=== PATIENT | female | born 1975 | race Two or more races ===

== ENCOUNTER 2024-04-28 09:46 | Outpatient (AMB) | payer MEDICAID, SELFPAY ==
--- NOTE | 2024-04-28 10:38 | ORTHONT_ITS ---
Vital signs 04/28/24 10:40 Height 1.5 m Height Method Stated Weight 86.239 kg Weight Measurement Method Standing Scale BMI 38.3 BP 114/67 Blood Pressure Source Automatic Cuff Blood Pressure Location Left Upper Arm Position Sitting Respiration 19 Pulse 65 Pulse Source Monitor Temp 98.0 F Temp Source Temporal Artery Scan Pulse Oximetry (%) 98 Oxygen Delivery Method Room Air Med/Allergies Allergies & Medications Allergies No Known Allergies Allergy (Verified 04/28/24 10:40) Medication Reconciliation albuterol sulfate 90 mcg/actuation aerosol inhaler (Ventolin HFA) 2 puff inhalation Q6H PRN shortness of breath or wheezing #8.5 grams 03/16/23 [Rx Confirmed 04/28/24] ibuprofen 800 mg tablet (IBU) 800 mg PO Q8H #20 tabs 03/16/23 [Rx Confirmed 04/28/24] promethazine-DM 6.25 mg-15 mg/5 mL oral syrup 5 ml PO Q6H #200 mL 03/16/23 [Rx Confirmed 04/28/24] diazepam 5 mg tablet (Valium) 5 mg PO BID PRN muscle spasm #10 tabs 09/16/23 [Rx Confirmed 04/28/24] Exam Exam Patient is in no acute distress and is cooperative with the examination today. Breathing is nonlabored. In no respiratory distress. Patient has no paraspinal tenderness. Spinal deformity cannot be appreciated. The gait of the patient is nonantalgic Bilateral extremities were evaluated and demonstrates sensation intact to light touch. Palpable pedal pulses are present. No significant edema is present. Bilateral knees were examined and the patient has full strength and range of motion.. The left hip was examined. Patient was able to flex to 90 degrees, adduct to 30 degrees, abduct to 40 degrees, internally rotate to 20 degrees, and externally rotate to 20 degrees. Patient has a negative logroll. Stinchfield is negative. The patient is nontender diffusely to touch. The right hip was examined. Patient was able to flex to 90 degrees, adduct to 30 degrees, abduct to 40 degrees, internally rotate to 20 degrees, and externally rotate to 20 degrees. Patient has a negative logroll. The stinchfield is negative. Assessment and Plan Problem List (1) Sciatica: Status: Acute Plan: Patient is a 48-year-old female with back versus hip pain with radicular pain and numbness. We discussed that we will get x-rays and go from there. She has a relatively benign hip clinical examination. We will do further workup. We will need to obtain x-rays of her hip as she is never got them. Office Procedures GNS Level of Care Nursing/Assessment Patient Status: Initial/New Patient Nursing Assessment/Reassesment: Medication Reconciliation, Update PMH in EMR and Vital Signs Coordination of Care: Complex Care and Chronic Disease 1-5, Education Complex Pt/Fam, Consent,records obtained, informed consent, 1 Ins Authorization, Lab and Imaging orders, Results/Orders obtained and Staff clarify orders Special Needs: Language special needs New Patient Charge New Patient Point Assignment: 1124 New Patient Point Charge: EXTRUSION FORMER Level 4 ([id number]) MA Intake Visit Data Collection New Patient or Established: New Patient (never been to [facility]) Reason for Visit:: BILATERAL HIP PAIN Seen by Clinical Staff ONLY (RN/MA): No Maxillofacial Prosthodontist Required: Yes PCP or OBGYN visit in last 3 months: Yes Hx Now: No Do You Feel Safe at Home: Yes Authorities Contacted: N/A Questionairres Past Medical History Past Medical History Have you ever been diagnosed with any of the following: Cardiology Problems Congestive Heart Failure: No Respiratory Problems Chronic Obstructive Pulmonary Disease (COPD): No Asthma: No Genital/Urinary Problems Renal Disease: No Endocrine Problems Diabetes Mellitus Type 1: No Diabetes Mellitus Type 2: No Blood Problems Sickle Cell Disease: No Subjective Visit Visit for: new patient and hip (BILATERAL) Immunization / Flu Flu Vaccine in the Last 12 Months: No Flu Vaccine Exclusion Criteria: Refused by Patient History of Present Illness Chief complaint: hip and spine pain Patient is a 48-year-old female with left greater than right hip pain. Started about 1 year ago without any injury, but has gotten worse. Describes symptoms as numbness and tingling down the side of the leg. Sometimes burning sensation, worse at night. Has pain and stiffness with walking going up and down stairs bending down. She has not tried any physical therapy or exercises. Takes ibuprofen 3 times a day sometimes Tylenol. Does not use any assistive devices. Personal History Occupation: UNEMPLOYED Pain Pain level (0-10): 3 Pain duration: ON AND OFF Pain location: outside (lateral) Pain quality: aching Pain timing: night, increases with activity and stairs Associated signs & symptoms: numbness and weakness Ambulatory data Ambulatory device: none Treatments Improvement with previous injections: No Improvement with PT: No Improvement with NSAIDS: no Review of Systems Review of Systems: All systems negative unless otherwise noted in HPI.
[2024-04-28 10:40] VITALS: BP 114/67; PULSE 65; RESP 19; TEMP 36.7; O2SAT 98; BMI 38.3
== END 2024-04-28 11:00 | disposition home or self-care (01) ==
LOC: HODSRG 09:46
PROVIDERS: PCP Family Medicine; Referring Provider Family Medicine; Supervising Provider Orthopaedic Surgery Adult Reconstructive Orthopaedic Surgery; Visit Provider Orthopaedic Surgery Adult Reconstructive Orthopaedic Surgery
DX: M54.30 Sciatica, unspecified side (principal); R20.0 Anesthesia of skin; M54.10 Radiculopathy, site unspecified; M25.552 Pain in left hip; M25.551 Pain in right hip
CPT/HCPCS: 99204; G0463

== ENCOUNTER → 2024-04-29 | Outpatient (CLI) | payer MEDICAID, SELFPAY ==
--- NOTE | 2024-04-29 12:35 | XR_ITS ---
Examination: Lumbar spine 3 views Technique one AP lateral coned lateral lower lumbar spine 3 views Exam date and time: April 29, 2024 1425 hours INDICATIONS: Lower back pain beginning one year ago. FINDINGS: Adequate alignment lumbar vertebral bodies Minimal old depression superior endplate L2 Advanced degenerative disc disease L4-L5 Mild lumbar spondylosis IMPRESSION: Advanced degenerative disc disease L4-L5
--- NOTE | 2024-04-29 12:35 | XR_ITS ---
Examination: Bilateral hips, AP pelvis, 5 views Technique: AP, lateral views both hips, AP pelvis, 5 views Exam date and time: April 29, 2024 1414 hours INDICATIONS: Bilateral hip pain beginning one year ago FINDINGS: Moderate osteopenia Mild narrowing hip joints No right or left hip fracture or dislocation Bones of the pelvis intact IMPRESSION: Mild narrowing hip joints
== END | disposition home or self-care (01) ==
PROVIDERS: PCP Physician Assistant; Referring Provider Orthopaedic Surgery Adult Reconstructive Orthopaedic Surgery; Visit Provider Orthopaedic Surgery Adult Reconstructive Orthopaedic Surgery
DX: M51.369 Other intervertebral disc degeneration, lumbar region without mention of lumbar back pain or lower extremity pain (principal); M25.852 Other specified joint disorders, left hip; M25.851 Other specified joint disorders, right hip
CPT/HCPCS: 72100; 73523

== ENCOUNTER 2024-05-12 10:22 | Outpatient (AMB) | payer MEDICAID, SELFPAY ==
[2024-05-12 11:25] VITALS: BP 111/75; PULSE 77; RESP 18; TEMP 36.6; O2SAT 98; BMI 38.5
--- NOTE | 2024-05-12 11:25 | PD.ORTHCLVIS ---
Vital signs 05/12/24 11:25 Height 1.5 m Height Method Stated Weight 86.806 kg Weight Measurement Method Standing Scale BMI 38.5 BP 111/75 Blood Pressure Source Automatic Cuff Blood Pressure Location Right Upper Arm Position Sitting Respiration 18 Pulse 77 Pulse Source Monitor Temp 97.8 F Temp Source Temporal Artery Scan Pulse Oximetry (%) 98 Oxygen Delivery Method Room Air Med/Allergies Allergies & Medications Allergies No Known Allergies Allergy (Verified 05/12/24 11:26) Medication Reconciliation albuterol sulfate 90 mcg/actuation aerosol inhaler (Ventolin HFA) 2 puff inhalation Q6H PRN shortness of breath or wheezing #8.5 grams 03/16/23 [Rx Confirmed 05/12/24] ibuprofen 800 mg tablet (IBU) 800 mg PO Q8H #20 tabs 03/16/23 [Rx Confirmed 05/12/24] promethazine-DM 6.25 mg-15 mg/5 mL oral syrup 5 ml PO Q6H #200 mL 03/16/23 [Rx Confirmed 05/12/24] diazepam 5 mg tablet (Valium) 5 mg PO BID PRN muscle spasm #10 tabs 09/16/23 [Rx Confirmed 05/12/24] Exam Exam Patient is in no acute distress and is cooperative with the examination today. Breathing is nonlabored. In no respiratory distress. Patient has no paraspinal tenderness. Spinal deformity cannot be appreciated. The gait of the patient is nonantalgic Bilateral extremities were evaluated and demonstrates sensation intact to light touch. Palpable pedal pulses are present. No significant edema is present. Bilateral knees were examined and the patient has full strength and range of motion.. The left hip was examined. Patient was able to flex to 90 degrees, adduct to 30 degrees, abduct to 40 degrees, internally rotate to 20 degrees, and externally rotate to 20 degrees. Patient has a negative logroll. Stinchfield is negative. The patient is nontender diffusely to touch. The right hip was examined. Patient was able to flex to 90 degrees, adduct to 30 degrees, abduct to 40 degrees, internally rotate to 20 degrees, and externally rotate to 20 degrees. Patient has a negative logroll. The stinchfield is negative. Hip x-rays demonstrate no pathology at all. The spine x-rays demonstrate severe degeneration at L4-5. Assessment and Plan Problem List (1) Sciatica: Status: Acute Plan: Patient is a 48-year-old female with back versus hip pain with radicular pain and numbness. She has a relatively benign hip clinical examination and radiographic exam. her spine x-rays are normal andHer symptoms appear to be from her back. She should see a back specialist Office Procedures GNS Level of Care Nursing/Assessment Patient Status: Established Patient Nursing Assessment/Reassesment: Medication Reconciliation, Update PMH in EMR and Vital Signs Coordination of Care: Complex Care and Chronic Disease 1-5, Education Complex Pt/Fam, Consent,records obtained, informed consent, Results/Orders obtained and Staff clarify orders Special Needs: Language special needs Established Patient Charge Established Patient Point Assignment: 95 Established Patient Point Charge: Level 3 (80-115) MA Intake Visit Data Collection New Patient or Established: Established Patient (seen at [facility] within 3 years) Reason for Visit:: F/U XRAYS Seen by Clinical Staff ONLY (RN/MA): No Verbal consent obtained for Telemed visit?: No Animal Cruelty Investigator Required: Yes PCP or OBGYN visit in last 3 months: Yes Hx Now: No Do You Feel Safe at Home: Yes Authorities Contacted: N/A Questionairres Past Medical History Past Medical History Have you ever been diagnosed with any of the following: Cardiology Problems Congestive Heart Failure: No Respiratory Problems Chronic Obstructive Pulmonary Disease (COPD): No Asthma: No Genital/Urinary Problems Renal Disease: No Endocrine Problems Diabetes Mellitus Type 1: No Diabetes Mellitus Type 2: No Blood Problems Sickle Cell Disease: No Subjective Visit Visit for: follow up visit, knee and x-rays Immunization / Flu Flu Vaccine in the Last 12 Months: Yes Flu Vaccine Exclusion Criteria: Already Received History of Present Illness Chief complaint: F/U XRAYS Patient is a 48-year-old female with left greater than right hip pain. Started about 1 year ago without any injury, but has gotten worse. Describes symptoms as numbness and tingling down the side of the leg. Sometimes burning sensation, worse at night. Has pain and stiffness with walking going up and down stairs bending down. She has not tried any physical therapy or exercises. Takes ibuprofen 3 times a day sometimes Tylenol. She Does not use any assistive devices. Personal History Occupation: UNEMPLOYED Red flag PMH: BMI BMI Counceling provided: Yes Pain Pain level (0-10): 5 Pain duration: ALL DAY Pain location: inside (medial), outside (lateral) and anterior Pain quality: sharp, dull and aching Pain timing: increases with activity Associated signs & symptoms: numbness and weakness Ambulatory data Ambulatory device: none Treatments Improvement with previous injections: No Improvement with PT: No Improvement with NSAIDS: no (IBUPROFEN 800 MG ) Review of Systems Review of Systems: All systems negative unless otherwise noted in HPI.
== END 2024-05-12 11:43 | disposition home or self-care (01) ==
PROVIDERS: PCP Family Medicine; Referring Provider Family Medicine; Supervising Provider Orthopaedic Surgery Adult Reconstructive Orthopaedic Surgery; Visit Provider Orthopaedic Surgery Adult Reconstructive Orthopaedic Surgery
DX: M54.30 Sciatica, unspecified side (principal)
CPT/HCPCS: 99213; G0463

== ENCOUNTER 2024-07-23 14:16 | Emergency (ER) | payer MEDICAID, SELFPAY ==
[2024-07-23 14:17] VITALS: BMI 37.0
[2024-07-23 14:59] VITALS: BP 146/87; PULSE 99; RESP 18; TEMP 36.6; O2SAT 99
--- NOTE | 2024-07-23 15:04 | XR_ITS ---
Examination: Cervical spine 3 views Technique one AP lateral coned AP odontoid cervical spine 3 views Exam date and time: July 23, 2024 1521 hours INDICATIONS: Sudden onset cervical spine pain beginning 2 months ago. FINDINGS: Adequate alignment cervical vertebral bodies. No cervical fracture. Intact odontoid. Moderate degenerative disc disease C3-C4, C5-C6, advanced degenerative disc disease C6-C7 IMPRESSION: Moderate degenerative disc disease C3-C4, C5-C6 Advanced degenerative disc disease C6-C7
--- NOTE | 2024-07-23 15:06 | EDNOTE_ITS ---
ED Headache RME/HPI General Chief Complaint: Headache Stated Complaint: HEAD/BACK PAIN [id number] Time Seen by Provider: 07/23/24 14:51 Source: patient Arrival date/time: 07/23/24 14:16 48-year-old female with no known medical history presents to the emergency room with a chief complaint of neck pain x 1 month Mode of arrival: ambulatory Limitations: no limitations Related Data Previous Rx's ?Medication ?Instructions ?Recorded albuterol sulfate 90 mcg/actuation 2 puff inhalation Q 6H PRN 03/16/23 aerosol inhaler (Ventolin HFA) shortness of breath or wheezing #8.5 grams ibuprofen 800 mg tablet (IBU) 800 mg PO Q8H #20 tabs 1 05/17/22 promethazine-DM 6.25 mg-15 mg/5 mL 5 ml PO Q6H #200 mL 03/16/23 oral syrup diazepam 5 mg tablet (Valium) 5 mg PO BID PRN muscle s pasm #10 09/16/23 tabs Allergies Allergy/AdvReac Type Severity Reaction Status Date / Time No Known Allergies Allergy Verified 05/12/24 11:26 Review of Systems Review of Systems Systems Reviewed: All systems reviewed, normal except as documented Constitutional Constitutional: Reports system reviewed and no additional complaints, except as documented, Denies fatigue, Denies fever(s), Reports headache(s) and Denies weakness Eyes Eyes: Reports system reviewed and no additional complaints, except as documented, Denies blurry vision and Denies change in vision ENT Ears, Nose, Mouth, and Throat: Reports system reviewed and no additional complaints, except as documented, Denies otalgia, Reports headache(s), Denies na afshan congestion, Reports neck pain, Denies throat swelling and Denies vertigo Cardiovascular Cardiovascular: Reports system reviewed and no additional complaints, except as documented, Denies chest pain, Denies dyspnea and Denies dyspnea on exertion Respiratory Respiratory: Reports system reviewed and no additional complaints, except as documented, Denies chest congestion, Denies cough, Denies dyspnea, Denies dyspnea on exertion and Denies wheezing Gastrointestinal Gastrointestinal: Reports system reviewed and no additional complaints, except as documented, Denies abdominal pain, Denies cramping, Denies nausea and Denies vomiting Genitourinary Genitourinary: Reports system reviewed and no additional complaints, except as documented Musculoskeletal Musculoskeletal: Reports system reviewed and no additional complaints, except as documented, Denies back pain and Reports neck pain Integumentary/Breasts Skin/Breast: Reports system reviewed and no additional complaints, except as documented and Denies wounds Neurologic Neurologic: Reports system reviewed and no additional complaints, except as documented, Denies confusion, Reports headache(s), Denies lack of coordination, Denies vertigo and Denies weakness Psychiatric Psychiatric: Reports system reviewed and no additional complaints, except as documented, Denies anxiety, Denies confusion, Denies depression, Denies paranoia, Denies suicidal ideation and Denies tactile hallucinations Endocrine Endocrine: Reports system reviewed and no additional complaints, except as documented and Denies fatigue Hematologic/Lymphatic Hematologic/Lymphatic: Reports system reviewed and no additional complaints, except as documented and Denies lymphadenopathy Allergic/Immunologic Allergic/Immunologic: Reports system reviewed and no additional complaints, except as documented, Denies throat swelling, Denies urticaria and Denies wheezing ED Exam General Limitations: Present no limitations General appearance: Present alert and in no apparent distress Head Head exam: Present atraumatic, normocephalic and normal inspection Eye Eye exam: Present normal appearance, PERRL and EOMI ENT ENT exam: Present normal exam, normal oropharynx and mucous membranes moist Neck Neck exam: Present normal inspection, full ROM, trachea midline and tenderness Expanded Neck Exam Neck exam focused ED: Present midline tenderness; Absent paraspinal tenderness, tenderness (other), tracheal deviation, anterior neck swelling, thyroid enlargement, JVD or carotid bruit Chest Chest inspection: Present normal inspection and symmetric chest wall rise Respiratory Respiratory exam: Present normal lung sounds bilaterally Cardiovascular Cardiovascular exam: Present regular rate, normal rhythm and normal heart sounds Abdominal Exam Abdominal exam: Present soft and normal bowel sounds Extremities Exam Extremities exam: Present normal inspection and full ROM Back Exam Back exam: Present normal inspection and full ROM Neurological Exam Neurological exam: Present alert, oriented X3 and CN II-XII intact Psychiatric Psychiatric exam: Present normal affect and normal mood Skin Skin exam: Present warm, dry, intact and normal color Course Quality Measures none Orders Category Date Time Status XR cervical spine 2-3V Stat Exams 07/23/24 15:04 Completed CBC Stat Lab 07/23/24 15:18 Completed CMP [Comprehensive Metabolic Panel] Stat Lab 07/23/24 15:18 Completed CYCLObenzaPRINE [Flexeril] Med 07/23/24 15:07 Discontinued 10 mg PO X1 ONE Ketorolac Inj [Toradol Inj] Med 07/23/24 15:07 Discontinued 30 mg IM X1 ONE Vital Signs Vital signs: Vital Signs Temperature 98 F 07/23/24 14:59 Pulse Rate 99 07/23/24 14:59 Respiratory Rate 18 07/23/24 14:59 Blood Pressure 146/87 H 07/23/24 14:59 Pulse Oximetry (%) 99 07/23/24 14:59 Oxygen Delivery Method Room Air 07/23/24 14:59 O2 saturation 99% within normal limits Headache MDM Narrative MDM Narrative:: 48-year-old female with no known medical history presents to the emergency room with a chief complaint of neck pain x 1 month Patient is hemodynamically stable and in no apparent distress. Patient states she works in the [employer] and constantly has to be looking up. Patient states her pain has been going on for 1 month and has progressively gotten worse. Patient denies any photophobia or any fevers X-ray of the cervical neck was completed and shows moderate degenerative disc disease C3 C4-C5-C6 and C7. CBC CMP were negative for any leukocytosis or any signs of infection Patient was discharged and educated to follow-up with primary care provider in the next 24 to 48 hours and return to the emergency room for any evidence of worsening signs or symptoms Patient data External records reviewed:: [facility] previous records Clinical information provided by:: patient Social determinants that could affect healthcare access:: none Patient has the following chronic illnesses:: No chronic illness How is presenting disease/condition affected by chronic disease/condition?: no chronic disease Evaluation data The following diagnostics were reviewed and interpreted by me:: lab results and radiology exam(s) Lab and/or radiology exams considered but not ordered:: Labs and radiology exams considered and ordered Interpretation Summary: Cervical neck [id number]: Adequate alignment cervical vertebral bodies. No cervical fracture. Intact odontoid. Moderate degenerative disc disease C3-C4, C5-C6, advanced degenerative disc disease C6-C7 IMPRESSION: Moderate degenerative disc disease C3-C4, C5-C6 Advanced degenerative disc disease C6-C7 Medications / Prescriptions Medications or Prescriptions considered but not ordered:: Medication given Medication administrations:: Medication Administration History Discontinued Medications Cyclobenzaprine HCl (Cyclobenzaprine 5 Mg Tablet) 10 mg PO X1 ONE Stop: 07/23/24 15:08 Last Admin: 05/01/25 15:31 Dose: 10 mg Documented By: PAM Ketorolac Tromethamine (Ketorolac Inj 60 Mg/2 Ml Vial) 30 mg IM X1 ONE Stop: 07/23/24 15:08 Last Admin: 07/23/24 15:32 Dose: 30 mg Documented By: PAM Medication given Consultations Consultation(s) initiated? (list below): No Diagnosis Differential diagnosis headache: migraine, tension headache, subarachnoid hemorrhage, headache and other (Degenerative disc disease) Most likely diagnosis given after review of the tests above:: Degenerative disc disease Admission Indicated Admission indicated?: not indicated Admission Request Was there a request for admission?: No Disposition Plan Disposition Plan: Discharge Discharge Attestation Discharge Attestation: The patient and all family members were given an opportunity to ask questions and understood the discharge instructions. Discharge instructions specifically effects, indications for sooner follow up or return to the emergency department, and the expected course of current diagnosis. Patient condition: Stable Discharge Plan Plan Patient Disposition: HOME (Self Care) Discharge Disposition comment: Stable Prescriptions/Referrals Prescriptions/Med Rec: No Action ibuprofen [IBU] 800 mg tablet 800 mg PO Q8H Qty: 20 0RF albuterol sulfate [Ventolin HFA] 90 mcg/actuation HFA aerosol inhaler 2 puff inhalation Q6H PRN (Reason: shortness of breath or wheezing) Qty: 8.5 0RF promethazine-DM 6.25-15 mg/5 mL syrup 5 ml PO Q6H Qty: 200 0RF diazepam [Valium] 5 mg tablet 5 mg PO BID PRN (Reason: muscle spasm) Qty: 10 0RF Referrals: No Primary/Family,Physician [Primary Care Provider] - In 1 week Problem List Clinical Impression: Degenerative disc disease Patient/Caregiver Discharge Instructions Additional Instructions: Please follow-up with your primary care provider in the next 24 to 48 hours. X-ray of your neck was completed and shows degenerative disc disease to the bones in your neck. For any evidence of worsening signs or symptoms return to the emergency room immediately Print Language: Gabonese Stand Alone Forms: Yesenia Award Info., Work/School Release, Patient Portal Info Letter PA/VOLUNTEER SPECIALIST Supervising Physician PA/VOLUNTEER SPECIALIST Supervising Physician: Dr. Echeverria
[2024-07-23] MEDS: CYCLObenzaPRINE 5 MG TABLET 10 MG PO (15:31)
[2024-07-23] MEDS: KETOROLAC INJ 60 MG/2 ML VIAL 30 MG IM (15:32)
[2024-07-23 15:40] LABS: Basophils % (Auto) 0 % (0-2.5); Eosinophils # (Auto) 0.1 Thou/mm3 (0.0-0.5); Eosinophils % (Auto) 1 % (0-10); Hematocrit 38.7 % (36.0-46.0); Hemoglobin 13.3 g/dL (12.0-16.0); Immature Granulocytes % (Auto) 0 % (0-0); Immature Granulocytes Auto 0.01 Thou/mm3 (0.00-0.00); Lymphocytes # (Auto) 1.9 Thou/mm3 (1.0-4.8); Lymphocytes % (Auto) 28 % (10-50); Mean Corpuscular HGB Conc 34.4 g/dl (31.0-37.0); Mean Corpuscular Hemoglobin 29.8 pg (25.0-35.0); Mean Corpuscular Volume 87 fL (80-100); Monocytes # (Auto) 0.6 Thou/mm3 (0.0-0.8); Monocytes % (Auto) 8 % (0-12); Neutrophils # (Auto) 4.3 Thou/mm3 (1.8-7.7); Neutrophils % (Auto) 62 % (37-80); Nucleated Red Blood Cell % 0 /100 WBC (0); Platelet Count 172 Thou/mm3 (140-440); RDW Standard Deviation 38.6 fL (36.4-46.3); Red Blood Count 4.46 Miln/mm3 (4.00-5.20); White Blood Count 6.9 Thou/mm3 (3.6-11.0)
[2024-07-23 15:58] LABS: Alanine Aminotransferase 27 U/L (10-49); Albumin, Serum 4.5 gm/dL (3.5-5.0); Albumin/Globulin Ratio 1.8 (1.2-2.2); Alkaline Phosphatase 76 U/L (46-116); Anion Gap 9 (7-16); Aspartate Amino Transferase 24 U/L (0-34); BUN/Creatinine Ratio 15 Ratio (12-20); Bilirubin,Total 0.4 mg/dL (0.3-1.2); Blood Urea Nitrogen 12 mg/dL (9-23); Calcium 9.4 mg/dL (8.3-10.6); Calcium (Corrected) 9.4 mg/dL (8.5-10.1); Carbon Dioxide 26.6 mMol/L (20.0-31.0); Chloride 108 mMol/L (98-107); Creatinine (Component) 0.8 mg/dL (0.6-1.3); Estimated Creatinine Clearance 88.2 mL/min (>60); Globulin 2.5 gm/dL (2.3-3.5); Glucose 99 mg/dL (74-106); Osmolality,Calculated 286 (275-295); Potassium 3.7 mMol/L (3.4-5.1); Sodium 144 mMol/L (136-145); eGFR > 60 See Note
== END 2024-07-23 16:51 | disposition home or self-care (01) ==
PROVIDERS: Nurse Practitioner Family; Emergency Provider Emergency Medicine
DX: M50.31 Other cervical disc degeneration, high cervical region (principal)
CPT/HCPCS: 36415; 72040; 80053; 85025; 96372; 99283; J1885; A9270

== ENCOUNTER → 2024-10-06 | Outpatient (CLI) | payer MEDICAID, SELFPAY ==
--- NOTE | 2024-10-06 14:30 | XR_ITS ---
Examination: MRI cervical spine without intravenous contrast Date and time of exam: October 06, 2024 1527 hours INDICATIONS: Neck pain months Technique: Multiple axial and sagittal sections of the cervical spine to been obtained. T2 weighted sagittal sections, TR 3, 270, TE 117 T1-weighted sagittal sections, TR 500, TE 11 T1-weighted axial sections, TR 607, TE 12, axial sections TR 18, TE 27 and T2 weighted transverse sections, TR 3920, TE 122. Findings: Straightening normal cervical lordosis. No cervical fracture. Intact odontoid. Moderate disc narrowing C6-C7 Diffuse cervical disc desiccation No localized enlargement cervical cord C2-C3 no disc protrusion C3-C4 3 mm central disc protrusion C4-C5 no disc protrusion C5-C6 4 mm central subarticular osteophyte disc complex, moderate bilateral neural foraminal stenosis C6-C7 advanced right neural foraminal stenosis C7-T1 moderate right neural foraminal stenosis IMPRESSION: C3-C4 3 mm central disc protrusion C5-C6 4 mm central subarticular osteophyte disc complex, moderate bilateral neural foraminal stenosis. C6-C7 advanced right neural foraminal stenosis. C7-T1 moderate right neural foraminal stenosis
== END | disposition home or self-care (01) ==
PROVIDERS: PCP Family Medicine; Referring Provider Physician Assistant; Visit Provider Physician Assistant
DX: M50.21 Other cervical disc displacement, high cervical region (principal); M48.02 Spinal stenosis, cervical region; M25.78 Osteophyte, vertebrae
CPT/HCPCS: 72141